=== PATIENT | female | born 1965 | race Caucasian/White ===

== ENCOUNTER 2017-07-26 06:07 | Day surgery (SDC) | payer OTHER ==
[~2017-07-26] VITALS: Ht 160 cm; Wt 62.8 kg
[2017-07-26] MEDS ORDERED: NO MEDS (06:50)
[2017-07-26 06:51] VITALS: Ht 160 cm; Wt 62.8 kg
[2017-07-26] MEDS ORDERED: FENTAnyl 50 MCG/ML VIAL ONE (07:50)
[2017-07-26] MEDS ORDERED: MIDAZOLAM 1 MG/ML 2 ML INJ ONE (07:50)
--- NOTE | 2017-07-26 07:57 | OPPN ---
Date/Time of Note Date/Time of Note DATE: 07/26/17 TIME: 07:54 Operative Report Preoperative Diagnosis Screening Postoperative Diagnosis Internal hemorrhoids No colon neoplasm is identified Operation/Procedure Performed Colonoscopy Surgeon see signature line assisted living associate None Anesthesia: moderate sedation Estimated blood loss: none Transfusion Required none Specimen None Grafts/Implants none Complications none JEAN NUNO MD Jul 26, 2017 07:57
[2017-07-26 08:19] VITALS: BP 119/79; PULSE 64; RESP 18
--- NOTE | 2017-07-26 09:30 | GILP ---
DATE OF PROCEDURE: NAME OF PROCEDURE: Colonoscopy. SURGEON: Jean Puente MD PREOPERATIVE DIAGNOSIS: Screening colonoscopy. POSTOPERATIVE DIAGNOSES: 1. Colonoscopy all the way to the cecum. 2. Internal hemorrhoids. 3. No colon neoplasm was identified. INDICATION FOR THE PROCEDURE: Ms. Tommy Christianson is a 51-year-old female patient who was scheduled for screening colonoscopy. The procedure and possible complications were well explained to the patient, she understood and cons ented to the procedure. DESCRIPTION OF PROCEDURE: Under the influence of fentanyl and Versed, the colonoscope was carefully introduced in the rectum and under direct vision, it was advanced all the way to the cecum. FINDINGS: The patient had internal hemorrhoids. No colon neoplasm was identified. She tolerated the procedure very well and there was no complication from the procedure. At the end of the procedures, she was awake with stable vital signs and she was discharged home to the care of her family. IMPRESSION: 1. Colonoscopy all the way to the cecum. 2. Internal hemorrhoids. 3. No colon neoplasm was identified. PLAN: Next screening colonoscopy in 10 years. Dictated By: JEAN BUSTOS/ROSITA Conf#: [id number] DID#: [id number]
== END 2017-07-26 10:55 | disposition home or self-care (01) ==
LOC: GIL 06:07
PROVIDERS: ATTEND Internal Medicine Gastroenterology
DX: Z12.11 Encounter for screening for malignant neoplasm of colon (principal); K64.8 Other hemorrhoids
CPT/HCPCS: 45378; J2250; J3010; Z7610